=== PATIENT | female | born 1930 | race Caucasian/White ===

== ENCOUNTER 2017-12-26 14:59 | Outpatient (CLI) | payer MEDICARE ==
--- NOTE | 2017-12-26 16:01 | CT ---
CT BRAIN: HISTORY: Followup subarachnoid hemorrhage. FINDINGS: Noncontrast-enhanced CT images brain are obtained. The brain is unremarkable. No evidence of intracranial masses, hemorrhages, strokes, or contusions s een. Cortical atrophy which is age appropriate is seen. No acute intracranial abnormality is seen. IMPRESSION: Age-appropriate cortical atrophy; otherwise unremarkable CT brain. POS: [facility]
== END 2017-12-26 15:00 | disposition home or self-care (01) ==
LOC: TBSIIMAG 14:59
PROVIDERS: ATTEND Surgery
DX: I60.9 Nontraumatic subarachnoid hemorrhage, unspecified (principal); G31.9 Degenerative disease of nervous system, unspecified
CPT/HCPCS: 70450